=== PATIENT | female | born 1950 | race Caucasian/White ===

== ENCOUNTER → 2017-05-10 | Outpatient (CLI) | payer MEDICARE, OTHER ==
[2016-05-06 07:56] VITALS: BP 134/75
[~2017-05-10] MED LIST: ALPR0.25 PO; AMLO5TAB2 PO; BENZ-8 PO; CELE200C PO; IPRA3AMP NEB; LISI-338 PO; LORA10TA3 PO; METF500T4 PO; OSEL75CA PO; PARO10TA3 PO; PARO30TA3 PO; PRED20TA PO
--- NOTE | 2017-05-10 12:04 | RAD ---
PQRS Compliance Statement: One or more of the following individualized dose reduction techniques were utilized for this examination: 1. Automated exposure control 2. Adjustment of the mA and/or kV according to patient size 3. Use of iterative reconstruction technique CT CHEST WO CONTRAST Clinical Indication: RIGHT LOWER LOBE NODULE, BRONCHITIS Comparison: CT chest without contrast May 04, 2016. TECHNIQUE: Helical CT imaging of the chest is performed without IV contrast. Findings: 10 mm right paratracheal lymph node is stable. Subcentimeter mediastinal lymph nodes. There is no adenopathy. Calcified subcarinal and tiny right hilar lymph nodes. Coronary artery disease of a diagonal branch. The great vessels are normal caliber. Cardiac size normal, no pericardial effusion. The central airways are patent. No pleural abnormality. There is a consolidation in the medial right middle lobe that has increased in size from prior study. Consolidation measures on the order of 3.8 x 1.5 cm, image 167 of series 5. Consolidation now surrounds a calcified granuloma. There is a bronchiole leading to the consolidation with peribronchial thickening, coronal image 26. Lungs are otherwise clear. Cholecystectomy. Mild fatty infiltration of the liver. Calcified granulomas in the spleen. Degenerative endplate spurring in the thoracic spine. IMPRESSION: Consolidation in the medial right middle lobe has increased in size from prior study. The consolidation now surrounds a calcified granuloma. There is peribronchiolar thickening leading to the consolidation. Considerations include scarring, chronic atelectasis, endobronchial lesion, less likely lung malignancy. Recommend noncontrast CT chest in 3 months. Alternatively FDG PET/CT may be helpful. Electronically signed by: Harsh Huff MD (05/10/2017 12:02 PM) [id number]
== END | disposition home or self-care (01) ==
LOC: CT 09:34
PROVIDERS: ATTEND Family Medicine
DX: J18.1 Lobar pneumonia, unspecified organism (principal); I25.10 Atherosclerotic heart disease of native coronary artery without angina pectoris; K76.0 Fatty (change of) liver, not elsewhere classified; D73.89 Other diseases of spleen
CPT/HCPCS: 71250

== ENCOUNTER → 2018-01-16 | Outpatient (CLI) | payer MEDICARE, OTHER ==
[2016-05-06 07:56] VITALS: BP 134/75
[~2018-01-16] MED LIST changes: -AMLO5TAB2 PO; +AMLO5TAB7 PO; -IPRA3AMP NEB; +IPRA3AMP29 NEB; +METF500T16 PO; -METF500T4 PO
--- NOTE | 2018-01-16 09:54 | RAD ---
Examination: Ultrasound abdomen limited HISTORY: History of umbilical hernia COMPARISON: None available FINDINGS: Ultrasound of the anterior abdominal wall demonstrates a umbilical hernia with the neck of the hernia measuring 2.6 x 1.3 cm. The umbilical hernia itself measures 4.3 x 3.5 x 2.4 cm. There is some echogenicity identified within the hernial sac. IMPRESSION: Anterior wall umbilical hernia as described above with echogenicity identified in the umbilical hernia could be fat or omentum. Cross-sectional imaging with CT scan can be considered for further evaluation. Electronically signed by: Darin Salazar MD (01/16/2018 9:51 AM) [place] [id number]
== END | disposition home or self-care (01) ==
LOC: US 08:46
PROVIDERS: ATTEND Family Medicine
DX: K42.9 Umbilical hernia without obstruction or gangrene (principal)
CPT/HCPCS: 76705

== ENCOUNTER → 2018-01-22 | Outpatient (CLI) | payer MEDICARE, OTHER ==
[2016-05-06 07:56] VITALS: BP 134/75
[~2018-01-22] MED LIST changes: +IOHEXOL 240 MG/ML 50ML VIAL. ONE; +IOHEXOL 300 MG/ML 75 ML VIAL. IV ONE
--- NOTE | 2018-01-22 11:48 | RAD ---
Examination: CT ABDOMEN W/CONTRAST History: UMBILICAL HERNIA. ORAL AND 75MLS OMNI 300 IV CONTRAST Comparison/Correlation: None Findings: Axial images of the abdomen were obtained following 75 cc Omnipaque 300 IV. Sagittal and coronal reformatted images were provided. Oral contrast was administered. Visualized lung bases are clear. Mild diffuse fatty infiltration of the liver is present. Cholecystectomy evident. Calcified granulomas involve the spleen. Pancreas is normal. Adrenal glands are unremarkable. Low-attenuation lesions involving the right kidney which are too small to characterize probably represents cysts. Calculus at the right renal upper pole within a calyx measuring 0.7 cm x 0.4 cm is present. Small umbilical hernia contains omental fat. Hernia defect measures 1.5 cm transverse. Diverticulosis of the colon is present. Appendix is normal. Moderate L3-4 and L4-5 disc space narrowing is present. Spurring with encroachment on neural foramina at L4-5 and L5-S1 noted. Abdominal aorta is unremarkable. Impression: Umbilical hernia containing omental fat. No herniation of bowel the hernia. No suspicious findings involving the herniated omental fat to suggest infarct or inflammation. Right renal superior pole nonobstructive calyceal calculus. Electronically signed by: Dinesh Dinero MD (01/22/2018 11:45 AM) [facility]
== END | disposition home or self-care (01) ==
LOC: CT 10:25
PROVIDERS: ATTEND Physician Assistant
DX: K42.9 Umbilical hernia without obstruction or gangrene (principal); M48.061 Spinal stenosis, lumbar region without neurogenic claudication; M46.07 Spinal enthesopathy, lumbosacral region; K57.30 Diverticulosis of large intestine without perforation or abscess without bleeding; N20.0 Calculus of kidney; K76.0 Fatty (change of) liver, not elsewhere classified; D73.89 Other diseases of spleen; E11.9 Type 2 diabetes mellitus without complications; Z90.49 Acquired absence of other specified parts of digestive tract
CPT/HCPCS: 74160; Q9966; Q9967

== ENCOUNTER → 2020-08-04 | Outpatient (CLI) | payer MEDICARE, OTHER ==
[2016-05-06 07:56] VITALS: BP 134/75
[~2020-08-04] MED LIST changes: +AMLO-186 PO; -AMLO5TAB7 PO; -IOHEXOL 240 MG/ML 50ML VIAL. ONE; -IOHEXOL 300 MG/ML 75 ML VIAL. IV ONE; -LISI-338 PO; +LISI-517 PO
--- NOTE | 2020-08-04 14:12 | RAD ---
EXAM: Bilateral knees, 3 views. HISTORY: Pain. COMPARISON: None. FINDINGS: 3 views of both knees are obtained. There are bilateral knee arthroplasties in expected pos ition. There is no evidence of arthroplasty loosening. There is trace right knee joint fluid. There a re right greater than left joint loose bodies. IMPRESSION: 1. Bilateral knee arthroplasties in expected vision. 2. Trace right knee joint fluid. Electronically signed by: Veronica Morales MD (08/04/2020 2:10 PM) [id number]
== END ==
LOC: RAD 13:54
PROVIDERS: ATTEND Orthopaedic Surgery
DX: M17.0 Bilateral primary osteoarthritis of knee (principal); M25.461 Effusion, right knee
CPT/HCPCS: 73560; 73565